=== PATIENT | male | born 1980 | race Caucasian/White ===

== ENCOUNTER 2024-06-30 10:21 | Emergency (ER) | payer OTHER, SELFPAY ==
[2024-06-30 10:33] VITALS: BP 130/93
[2024-06-30 11:45] VITALS: BP 126/96
[2024-06-30 12:00] VITALS: BP 147/72
--- NOTE | 2024-06-30 12:08 | ED.GENMED ---
History of Present Illness
General
Chief Complaint: DVT/Possible Blood Clot
Source: patient
Exam Limitations: none
Time Seen by Provider: 06/30/24 11:53
History of Present Illness
History of Present Illness:
44-year-old male with history of hypertension but otherwise healthy presents with several days worth of persistent and worsening right calf pain. It started after a trip back and forth to [place]. He was in a car for over 10 hours. No chest
pain or shortness of breath. No fevers cough or hemoptysis. No prior history of DVT. Initially seen at the urgent care and sent here for further evaluation.
Phy Exam
Physical Exam
Physical Exam:
General: Well-appearing male no acute respiratory distress
Extremities: No cyanosis. No edema noted. There is right calf tenderness. Increased pain with dorsiflexion of the right ankle.
Skin is warm with good color.
Vascular: 2+ dorsalis pedis pulse bilateral feet
Course
Orders/Labs/Results
Orders:
Orders
06/30/24 10:36
US Legs, Right [US Periph Venous LOWER Ext RT] Urgent
Comment:
Reason For Exam: dvt r/o
06/30/24 12:07
Apixaban [Eliquis] 10 mg PO NOW STA
Vital Signs
Initial and Last Documented VS:
Initial Vital Signs
Temp Pulse Resp BP Pulse Ox
98.6 F 87 18 130/93 98
06/30/24 10:33 06/30/24 10:33 06/30/24 10:33 06/30/24 10:33 06/30/24 10:33
Last Documented Vital Signs
Temp Pulse Resp BP Pulse Ox
98.6 F 75 18 126/96 98
06/30/24 10:33 06/30/24 11:46 06/30/24 10:33 06/30/24 11:45 06/30/24 11:46
MDM/Problems Addressed
Differential Diagnosis Includes:
Right calf pain. Differential could include calf strain versus DVT. No clinical concern for infectious source such as cellulitis or abscess. Venous ultrasound ordered through triage was demonstrates nonocclusive thrombus in the right
gastrocnemius vein
. This is a deep vein.
Will start on Eliquis. He is healthy. 10 mg twice a day for the first week then decrease to 5 mg twice a day. He has an appointment with his family doctor this coming Monday which is for 3 days. Advised to keep this. No chest pain or
shortness of breath. No respiratory difficulties suggest suspicion of PE. Consider further imaging but not indicated at this time
*Critical Care Note
Total Time (30-74mins, 75-104mins- exclusive of procedures): Not Applicable
ED Attending Note
-
Portions of this chart may have been created with voice recognition software.� Occasional wrong word or��sound alike� substitutions may have occurred due to the inherent limitations of voice recognition software.
Discharge Plan
Departure
Patient Disposition: Home (Routine Discharge)
Date of Disposition: 06/30/24
Time of Disposition: 12:10
Patient with high blood pressure during this ER visit?: No
Discharge Problem:
DVT (deep venous thrombosis)
Instructions: Deep Vein Thrombosis (Blood Clots in the Legs) (DC), Apixaban
Prescriptions:
New
Eliquis 5 mg tablet
5 mg PO BID Qty: 70 0RF
Referrals:
Feng Meyer DO [Family Provider] -
Activity Restrictions/Additional Instructions:
You may use Tylenol if needed for discomfort but you may not use nonsteroidal anti-inflammatories. Use Eliquis 10 mg twice a day for the week then decrease to 5 mg twice a day for the weeks following. Keep your appointment with your family doctor
as planned for this week. Return here for increased pain chest pain shortness of breath or other concerning findings
Interventions
Interventions:
*Risk Screen - Suicide Last Done: 06/30/24 10:33
*General Assessment Last Done: 06/30/24 10:33
*Neglect/Abuse Screening Last Done: 06/30/24 10:33
ED- Fall Risk Assessment Last Done: 06/30/24 11:05
*ED COVID-19 Vaccine History Last Done: 06/30/24 11:05
ED- Cardiac Assessment Last Done: 06/30/24 11:05
ED- Pulmonary Assessment Last Done: 06/30/24 11:05
ED-Peripheral Vascular Assessment Last Done: 06/30/24 11:05
ED-Skin Assessment Last Done: 06/30/24 11:05
Discharge Date and Time
Print Language: PASHTO
[2024-06-30] MEDS: ELIQUIS 10 MG PO (12:16)
== END 2024-06-30 12:15 | disposition home or self-care (01) ==
LOC: EMR 10:21
PROVIDERS: EMERGENCY PHYSICIAN Emergency Medicine; FAMILY PHYSICIAN Family Medicine
DX: I82.461 Acute embolism and thrombosis of right calf muscular vein (principal); I10 Essential (primary) hypertension
CPT/HCPCS: 99284; 93971